=== PATIENT | female | born 1965 | race Caucasian/White ===

== ENCOUNTER → 2022-05-05 | Outpatient (CLI) | payer OTHER ==
[~2022-05-05] MED LIST: ACET650T PO; DOCU5LIQ PO; IRON28TA OR; IRON65TA2 PO; OXYC1TAB23 PO; ROPI2TAB3 PO
== END ==
LOC: M LABSMTC 11:49
PROVIDERS: ATTEND Anesthesiology
DX: Z01.812 Encounter for preprocedural laboratory examination (principal); Z11.52 Encounter for screening for COVID-19

== ENCOUNTER 2022-05-08 14:20 | Day surgery (SDC) | payer OTHER ==
[~2022-05-08] VITALS: Ht 147.3 cm; Wt 64.0 kg
[~2022-05-08 14:20] MED LIST changes: +ACETAMINOPHEN *IV* 1,000 MG IV ONE; +PERC5TAB12 PO; +ceFAZolin SOD 2 GM in IV 1 EA IV ONE
[2022-05-08] MEDS ORDERED: LR 1,000 ML IV SCH (14:55)
[2022-05-08 14:58] LABS: HEMATOCRIT 44.9 % (36.0-47.0); HEMOGLOBIN 14.9 g/dl (12.0-15.5); MEAN CORPUSCULAR HEMOGLOBIN 29.6 pg (27.0-33.0); MEAN CORPUSCULAR HGB CONC 33.2 g/dl (32.0-36.5); MEAN CORPUSCULAR VOLUME 89.1 fl (80.0-96.0); PLATELET COUNT, AUTOMATED 146 10^3/uL (150-450); RED BLOOD COUNT 5.04 10^6/uL (4.00-5.40); WHITE BLOOD COUNT 5.7 10^3/uL (4.0-10.0)
[2022-05-08 15:30] LABS: BLOOD UREA NITROGEN 11 MG/DL (9-23); CALCIUM LEVEL 9.3 MG/DL (8.5-10.1); CARBON DIOXIDE LEVEL 25 MMOL/L (20-31); CHLORIDE LEVEL 108 MMOL/L (98-107); CREATININE FOR GFR 0.59 MG/DL (0.55-1.30); GLOMERULAR FILTRATION RATE > 60.0 (>51); GLUCOSE, FASTING 92 MG/DL (60-100); POTASSIUM SERUM 4.1 MMOL/L (3.5-5.1); SODIUM LEVEL 141 MMOL/L (136-145)
[2022-05-08] MEDS ORDERED: propofoL 200 MG/20 ML VIAL As Ordered ONE (16:39)
[2022-05-08] MEDS ORDERED: LIDOCAINE 2% 100MG/5ML SDV (FOR ANES.) As Ordered ONE (16:39)
[2022-05-08] MEDS ORDERED: ONDANSETRON 4MG 2ML VIAL As Ordered ONE (16:39)
[2022-05-08] MEDS ORDERED: KETOROLAC 60MG 2ML VIAL As Ordered ONE (16:39)
[2022-05-08] MEDS ORDERED: BUPIVACAINE HCL 0.25% 30ML VIAL As Ordered ONE (17:44)
[2022-05-08] MEDS ORDERED: fentaNYL 100 MCG/2 ML INJECTION As Ordered ONE (17:49)
[2022-05-08] MEDS ORDERED: MIDAZOLAM INJ 2MG/2ML VIAL As Ordered ONE (17:49)
[2022-05-08] MEDS ORDERED: IODINE STRONG SOLN 15ML BTL As Ordered ONE (18:09)
[2022-05-08] MEDS ORDERED: ONDANSETRON 4MG 2ML VIAL IV PRN (18:50)
[2022-05-08] MEDS ORDERED: HYDROMORPHONE HCL 0.5 MG/ 0.5 ML SYRINGE IV PRN (18:50)
[2022-05-08] MEDS ORDERED: fentaNYL 100 MCG/2 ML INJECTION IV PRN (18:50)
[2022-05-08] MEDS ORDERED: PERCOCET 5MG/325MG TAB PO PRN (19:20)
[2022-05-08] MEDS: oxyCODONE 5MG TAB PO PRN ×2 (19:34→20:03)
[2022-05-08 20:30] VITALS: BP 145/77
[2022-05-09] MEDS ORDERED: IBUPROFEN 800 MG TAB PO SCH
== END 2022-05-08 20:42 | disposition home or self-care (01) ==
LOC: M SDC 14:20
PROVIDERS: ATTEND Obstetrics & Gynecology
DX: D07.1 Carcinoma in situ of vulva (principal); F17.210 Nicotine dependence, cigarettes, uncomplicated; Z98.84 Bariatric surgery status; D64.9 Anemia, unspecified; Z79.899 Other long term (current) drug therapy
CPT/HCPCS: 36415; 56620; 80048; 85027; 86850; 86900; 86901; 88307; 93005; J1100; J2405